=== PATIENT | female | born 1965 | race Caucasian/White ===

== ENCOUNTER 2017-02-01 22:06 | Emergency (ER) | payer OTHER ==
[~2017-02-01] VITALS: Ht 152.4 cm; Wt 72.6 kg
--- NOTE | ~2017-02-01 | EKG ---
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
[2017-02-01] MEDS ORDERED: MONTELUKAST SOD10 MG PO (22:27)
[2017-02-01] MEDS ORDERED: TESSALON PERLE100 MG PO (22:27)
[2017-02-01] MEDS ORDERED: AMOXICILLIN 50500 MG PO (22:28)
[2017-02-01 23:06] LABS: ABSOLUTE NEUTROPHILS 4.6 thou/uL (1.4-8.2); BASOPHILS 0.8 % (0.0-2.0); EOSINOPHILS 0.9 % (0.0-3.0); HEMATOCRIT 42.1 % (37.0-47.0); HEMOGLOBIN 14.6 gm/dL (12.0-15.0); LYMPHOCYTES 38.7 % (24.0-44.0); MCH 30.9 pg (26.0-34.0); MCHC 34.7 g/dL (28.0-37.0); MONOCYTES 8.7 % (1.0-8.0); PLATELET COUNT 218 thou/uL (150-400); POLYS 50.9 % (36.0-66.0); RBC 4.72 mil/uL (4.20-5.00); RDW 12.8 % (10.5-14.5); WBC 9.1 thou/uL (4.0-11.0)
[2017-02-01 23:10] LABS: MANUAL DIFF NO
[2017-02-01 23:29] LABS: CALCIUM 9.1 mg/dL (8.5-10.1); CREATININE 0.6 mg/dL (0.6-1.0); POTASSIUM 4.8 mmol/L (3.5-5.1)
[2017-02-01] MEDS ORDERED: DOXYCYCLINE 10100 MG PO (23:48)
[2017-02-02 00:04] VITALS: BP 135/74
== END 2017-02-02 00:06 | disposition home or self-care (01) ==
LOC: ER 22:06
PROVIDERS: Physician Assistant
DX: J18.9 Pneumonia, unspecified organism (principal); Z88.0 Allergy status to penicillin; Z88.6 Allergy status to analgesic agent

== ENCOUNTER 2017-02-04 11:17 | Emergency (ER) | payer OTHER ==
[~2017-02-04] VITALS: Ht 162.6 cm; Wt 77.1 kg
--- NOTE | ~2017-02-04 | EKG ---
[place] [address] [facility] [place] [address] ELECTROCARDIOGRAM REPORT Name: MAHESH HERNÁNDEZ Room #: DEP [facility]#: [id number] Admission: 02/04/17 Attend Phys: Discharge: 02/04/17 Date of : 65 Report #: [id number] THIS REPORT FOR: //name// [facility] ED Test Date: 2017-02-04 Test Time: 11:56:49 Pat Name: MAHESH BRENNAN Department: Room: Gender: F [employer]er: : 1965 Requested By: Taylor Jones Order Number: [id number] MD: Steve Moya Measurements Intervals [place] Rate: 70 P: 23 MT: 138 QRS: 22 QRSD: 90 T: 33 QT: 403 QTc: 435 Interpretive Statements Sinus rhythm No significant abnormality Compared to ECG 02/01/2017 22:19:35 No significant changes Electronically Signed On 02-05-2017 8:30:01 CDT by Steve Moya [email or web address] <ELECTRONICALLY SIGNED> By: Steve Moya MD, [facility] 02/05/17 0830 1156 1156 Steve Moya MD, FACC /EPI
[~2017-02-04 11:17] MED LIST: AMOXICILLIN 50500 MG PO; DOXYCYCLINE 10100 MG PO; MONTELUKAST SOD10 MG PO; TESSALON PERLE100 MG PO
[2017-02-04 12:25] LABS: BASOPHILS 1.1 % (0.0-2.0); EOSINOPHILS 0.2 % (0.0-3.0); HEMATOCRIT 41.3 % (37.0-47.0); HEMOGLOBIN 14.5 gm/dL (12.0-15.0); LYMPHOCYTES 39.4 % (24.0-44.0); MANUAL DIFF NO; MCH 30.8 pg (26.0-34.0); MCV 87.9 fL (80.0-100.0); MONOCYTES 9.5 % (1.0-8.0); PLATELET COUNT 197 thou/uL (150-400); POLYS 49.8 % (36.0-66.0); RDW 13.1 % (10.5-14.5); WBC 7.9 thou/uL (4.0-11.0)
[2017-02-04 12:29] LABS: ABG SAMPLE TYPE ARTERIAL; BE(vivo) 3.6 mmol/L (-2 to +3); HCO3 23.1 mmol/L (22.0-26.0); LACTATE 1.59 mmol/L (0.5-2.0); O2(CT) 20.5 mL/dL (15.0-23.0); O2Hb 95.9 % (92.0-98.0); PO2 77.8 mmHg (80.0-100.0); sO2 97.4 % (92.0-98.0); tCO2 23.8 mmol/L (24.0-30.0)
[2017-02-04 12:31] LABS: CALCIUM 9.3 mg/dL (8.5-10.1); CREATININE 0.6 mg/dL (0.6-1.0); POTASSIUM 3.5 mmol/L (3.5-5.1)
[2017-02-04 12:31] LABS: PCO2 23.3 mmHg (35.0-45.0); pH 7.614 (7.360-7.450)
[2017-02-04 12:32] LABS: STICK SITE R.RADIAL
[2017-02-04 12:35] LABS: ABG COMMENT ON BREATHING TX
[2017-02-04] MEDS ORDERED: PROMETHAZINE-C120 ML PO (14:21)
[2017-02-04] MEDS ORDERED: MUCINEX TA600 MG/TA2 PO (14:21)
[2017-02-04 14:36] VITALS: BP 121/64
== END 2017-02-04 14:37 | disposition home or self-care (01) ==
LOC: ER 11:17
PROVIDERS: Emergency Medicine
DX: J06.9 Acute upper respiratory infection, unspecified (principal); Z88.1 Allergy status to other antibiotic agents; Z88.6 Allergy status to analgesic agent; Z88.0 Allergy status to penicillin